=== PATIENT | male | born 1975 | race Asian ===

== ENCOUNTER 2017-09-29 13:41 | Emergency (ER) | payer OTHER ==
[~2017-09-29] VITALS: Ht 177.8 cm; Wt 108.9 kg
[2017-09-29 13:55] VITALS: BP 147/104; Ht 177.8 cm; Wt 108.9 kg
== END 2017-09-29 14:56 | disposition home or self-care (01) ==
LOC: ED 13:41
DX: K42.9 Umbilical hernia without obstruction or gangrene (principal); I10 Essential (primary) hypertension; E11.9 Type 2 diabetes mellitus without complications; Z90.89 Acquired absence of other organs